=== PATIENT | male | born 1960 | race Caucasian/White ===

== ENCOUNTER 2019-01-18 02:55 | Observation (INO) | payer BC ==
[~2019-01-18] VITALS: Ht 177.8 cm; Wt 130.6 kg
[~2019-01-18 02:55] MED LIST: ASPIRIN CHEW81 MG PO; CO Q10200 MG PO; DILAUDID4 MG PO; DOXYCYCLINE HY100 MG PO; FENOFIBRATE160 MG PO; HYDROCHLOROTH12.5 MG PO; HYDROCODON-ACE1 EAC9 PO; HYDROXYCHLOROQ200 MG PO; LASIX40 MG PO; LOPRESSOR25 MG PO; LORCET 10-6501 EACH PO; MELATONIN 3 MG1 EACH PO; METHOCARBAMOL750 MG PO; METOPROLOL SUCC25 MG PO; NEURONTIN300 MG PO; PEPCID20 MG PO; PLAVIX75 MG PO; PRAVASTATIN SOD10 MG; PRINIVIL10 MG PO; VITAMIN D32000 UNIT PO; ZOCOR40 MG PO
[2019-01-18] MEDS ORDERED: NITROGLYCERIN 2% OINT 1 GM PKT TOP ONE (03:00)
[2019-01-18 03:34] LABS: BASOPHILS # (AUTO) 0.1 (0.0-0.1); BASOPHILS % 0.4 % (0.0-1.0); EOSINOPHILS # (AUTO) 0.5 (0.0-0.4); EOSINOPHILS % 3.9 % (0.0-6.0); HEMATOCRIT 46.4 % (38.2-49.6); HEMOGLOBIN 15.8 g/dL (14.0-18.0); LYMPHOCYTES % 24.1 % (18.0-39.1); MEAN CORPUSCULAR HGB CONC 34.1 g/dL (31-35); MEAN CORPUSCULAR VOLUME 93.9 fL (81-99); MONOCYTES # (AUTO) 1.4 (0.2-0.8); MONOCYTES % 11.6 % (4.4-11.3); NEUTROPHILS # (AUTO) 7.4 (2.1-6.9); NEUTROPHILS % 59.6 % (38.7-80.0); PLATELET COUNT 265 x10e3/uL (140-360); RED BLOOD COUNT 4.94 x10e6/uL (4.3-5.7); RED CELL DISTRIBUTION WIDTH 12.5 % (11.7-14.4)
[2019-01-18 03:37] LABS: INR 0.9; PROTHROMBIN TIME 12.6 seconds (11.9-14.5)
[2019-01-18 03:38] LABS: PARTIAL THROMBOPLASTIN TIME 29.6 seconds (23.8-35.5)
[2019-01-18] MEDS ORDERED: ASPIRIN 81 MG CHEW TAB ONE (03:40)
[2019-01-18] MEDS ORDERED: ASPIRIN 81 MG CHEW TAB PO ONE (03:45)
[2019-01-18 03:46] LABS: ALANINE AMINOTRANSFERASE 17 IU/L (0-55); ALBUMIN 3.6 g/dL (3.5-5.0); ALBUMIN/GLOBULIN RATIO 1.1 (0.8-2.0); ALKALINE PHOSPHATASE 58 IU/L (40-150); ANION GAP 12.9 mmol/L (8-16); BLOOD UREA NITROGEN 16 mg/dL (7-26); BUN/CREATININE RATIO 13 (6-25); CALCIUM 9.5 mg/dL (8.4-10.2); CARBON DIOXIDE 27 mmol/L (22-29); CHLORIDE 104 mmol/L (98-107); CREATININE, SERUM 1.19 mg/dL (0.72-1.25); EST GLOMERULAR FILTRATION RATE > 60 ML/MIN (60-); GLUCOSE 99 mg/dL (74-118); POTASSIUM 3.9 mmol/L (3.5-5.1); SODIUM 140 mmol/L (136-145)
--- NOTE | 2019-01-18 04:02 | Diagnostic Imaging Report ---
EXAMINATION: CHEST SINGLE (PORTABLE) INDICATION: ^CHEST PAIN ^[id number] ^0325 ^Y COMPARISON: None available FINDINGS: AP view TUBES and LINES: None. LUNGS: Limited by body habitus. Lungs are well inflated. Mild central vascular congestion. No focal consolidation. PLEURA: No pleural effusion or pneumothorax. HEART AND MEDIASTINUM: The cardiomediastinal silhouette is mildly prominent. BONES AND SOFT TISSUES: No acute osseous lesion. Soft tissues are unremarkable. UPPER ABDOMEN: No free air under the diaphragm. IMPRESSION: Mildly prominent cardiac silhouette with mild central vascular congestion. No focal consolidation. Signed by: Dr. Maldonado Bravo MD on 01/18/2019 3:59 AM
[2019-01-18] MEDS ORDERED: IOPAMIDOL 370 MG/ML 200 ML INFUS..BTL INJ ONE (04:07)
[2019-01-18] MEDS ORDERED: SODIUM CHLORIDE 0.9% 50ML 50 ML ONE (04:07)
[2019-01-18 04:31] LABS: CREATINE KINASE MB 2.9 ng/mL (0-5.0)
--- NOTE | 2019-01-18 05:14 | Diagnostic Imaging Report ---
EXAM: CT Chest WITH contrast (PE Protocol) INDICATION: ^PE PROTOCOL ^[id number] ^0410 ^Y COMPARISON: Chest CT dated 06/29/2015 TECHNIQUE: Chest was scanned utilizing a multidetector helical scanner from the lung apex through the level of the diaphragm after administration of IV contrast. Thin section reconstructions were obtained with special concentration on the pulmonary arteries. Coronal and sagittal reformations were obtained. Dose modulation, iterative reconstruction, and/or weight based adjustment of the mA/kV was utilized to reduce the radiation dose to as low as reasonably achievable. Pulmonary embolism protocol was performed. IV CONTRAST: 100 mL of Isovue-370 COMPLICATIONS: None RADIATION DOSE: Total DLP: 669.93 mGy*cm Estimated effective dose: (DLP x 0.014 x size factor) mSv CTDIvol has been reviewed. It is below the limits set by the Radiation Protocol Committee (RPC). FINDINGS: LINES/ TUBES: None. LUNGS AND AIRWAYS: No filling defect is identified within the pulmonary arteries to the segmental level. The lungs are unremarkable. Stable anterior right upper lobe 7 mm nodule since 2014, likely benign. Airways are normal. PLEURA: The pleural spaces are clear. HEART AND MEDIASTINUM: The thyroid gland is normal. No mediastinal, hilar or axillary lymphadenopathy. The heart is normal in size.. There is no pericardial effusion. . Main pulmonary artery measures 3 cm in diameter and the ascending aorta measures 3.6 cm. Coronary stents. UPPER ABDOMEN: Cholecystectomy. Colonic diverticuli visualized. BONES: The visualized bony thorax is within normal limits. SOFT TISSUES: Unremarkable. IMPRESSION: No pulmonary emboli. Signed by: Dr. Maldonado Bravo MD on 01/18/2019 5:10 AM
[2019-01-18] MEDS ORDERED: CYMBALTA30 MG PO (05:19)
[2019-01-18] MEDS ORDERED: LASIX40 MG PO (05:19)
[2019-01-18] MEDS ORDERED: K DUR10 MEQ PO (05:20)
[2019-01-18] MEDS ORDERED: CLOPIDOGREL BISULFATE 75 MG TAB PO ONE (05:30)
[2019-01-18] MEDS ORDERED: ONDANSETRON HCL INJ 2MG/ML 2ML 2 MG/ML VIAL IV PRN (05:45)
--- NOTE | 2019-01-18 05:51 | NUR ---
PT PLACED ON TELE BOX 22
--- OUTSIDE RECORDS SUMMARY | 2019-01-18 06:02 | XMS REPORT ---
Author Author [facility] Address Unknown Phone Unavailable Care Team Providers Care Java J2E[employer] Application Developer Name Role Phone Luciano ENGLISH Unavailable Unavailable Problems This patient has no known problems. Allergies, Adverse Reactions, Alerts This patient has no known allergies or adverse reactions. Medications This patient has no known medications. Results Test Description Test Time Test Comments Text Results Atomic Results Result Comments CT CHEST W 2019-01-18 05:04:00 [place] [address] Patient Name: CIERRA WYATT MR #: [id number] : 1960 Age/Sex: 58/M Req #: [id number] Adm Physician: Ordered by: GABI ENGLISH MD Report #: [id number] Location: ER Room/Bed: Procedure: [id number] CT/CT CHEST W Exam Date: 01/18/19 Exam Time: 409 REPORT STATUS: Signed EXAM: CT Chest WITH contrast (PE Protocol) INDICATION: PE PROTOCOL [id number] 0410 Y COMPARISON: Chest CT dated 06/29/2015 TECHNIQUE: Chest was scanned utilizing a multidetector helical scanner from the lung apex through the level of the diaphragm after administration of IV contrast. Thin section reconstructions were obtained with special concentration on the pulmonary arteries. Coronal and sagittal reformations were obtained. Dose modulation, iterative reconstruction, and/or weight based adjustment of the mA/kV was utilized to reduce the radiation dose to as low as reasonably achievable. Pulmonary embolism protocol was performed. IV CONTRAST: 100 mL of Isovue-370 COMPLICATIONS: None RADIATION DOSE: Total DLP: 669.93 mGy*cm Estimated effective dose: (DLP x 0.014 x size factor) mSv CTDIvol has been reviewed. It is below the limits set by the Radiation Protocol Committee (RPC). FINDINGS: LINES/ TUBES: None. LUNGS AND AIRWAYS: No filling defect is identified within the pulmonary arteries to the segmental level. The lungs are unremarkable. Stable anterior right upper lobe 7 mm nodule since 2015, likely benign. Airways are normal. PLEURA: The pleural spaces are clear. HEART AND MEDIASTINUM: The thyroid gland is normal. No mediastinal, hilar or axillary lymphadenopathy. The heart is normal in size.. There is no pericardial effusion. . Main pulmonary artery measures 3 cm in diameter and the ascending aorta measures 3.6 cm. Coronary stents. UPPER ABDOMEN: Cholecystectomy. Colonic diverticuli visualized. BONES: The visualized bony thorax is within normal limits. SOFT TISSUES: Unremarkable. IMPRESSION: No pulmonary emboli. Signed by: Dr. Maldonado Magdaleno MD on 01/18/2019 5:10 AM Dictated By: MALDONADO MAGDALENO MD 9 Transcribed By: TIFFANY on 01/18/19509 COPY TO: GABI ENGLISH MD CHEST SINGLE (PORTABLE) 2019-01-18 03:57:00 [place] [address] Patient Name: CIERRA WYATT MR #: [id number] : 1960 Age/Sex: 58/M Req #: [id number] Adm Physician: Ordered by: GABI ENGLISH MD Report #: [id number] Location: ER Room/Bed: Procedure: [id number] DX/CHEST SINGLE (PORTABLE) Exam Date: 01/18/19 Exam Time: 324 REPORT STATUS: Signed EXAMINATION: CHEST SINGLE (PORTABLE) INDICATION: CHEST PAIN [id number] Y COMPARISON: None available FINDINGS: AP view TUBES and LINES: None. LUNGS: Limited by body habitus. Lungs are well inflated. Mild central vascular congestion. No focal consolidation. PLEURA: No pleural effusion or pneumothorax. HEART AND MEDIASTINUM: The cardiomediastinal silhouette is mildly prominent. BONES AND SOFT TISSUES: No acute osseous lesion. Soft tissues are unremarkable. UPPER ABDOMEN: No free air under the diaphragm. IMPRESSION: Mildly prominent cardiac silhouette with mild central vascular congestion. No focal consolidation. Signed by: Dr. Maldonado Magdaleno MD on 01/18/2019 3:59 AM Dictated By: MALDONADO MAGDALENO MD 8 Transcribed By: TIFFANY on 01/18/19358 COPY TO: GABI ENGLISH MD
[2019-01-18] MEDS: FAMOTIDINE 20 MG/2 ML VIAL IV SCH ×2 (06:15→17:40)
--- NOTE | 2019-01-18 06:21 | NUR ---
Pt received from ER. Pt A&O and in no apparent distress. Pt at bedside. Pt on room air and tele. Pt has no current complaints of pain. All safety measures ensured. Pt encouraged to use call hickey for assistance.
[2019-01-18 06:33] VITALS: BP 127/75
--- NOTE | 2019-01-18 06:50 | NUR ---
rounded with superintendent house nurse, patient aware of change and in no distress. call hickey within reach and bed in lowest position.
--- NOTE | 2019-01-18 07:01 | NUR ---
Bedside report and walking rounds complete with day shift RN.
[2019-01-18 07:42] VITALS: BP 135/65
[2019-01-18 08:14] VITALS: BP 135/65
--- NOTE | 2019-01-18 08:50 | NUR ---
patient leaving unit to nuclear medicine for stress test at this time, alert and oriented and in no distress.
[2019-01-18] MEDS ORDERED: REGADENOSON 0.4 MG/5 ML SYR IV ONE (08:54)
[2019-01-18] MEDS ORDERED: ASPIRIN 81 MG ENTERIC COATED PO SCH (09:00)
[2019-01-18] MEDS ORDERED: CLOPIDOGREL BISULFATE 75 MG TAB PO SCH (09:00)
--- NOTE | 2019-01-18 11:51 | NUR ---
patient arrived on unit via wheelchair, alert and oriented. Call hickey within reach, bed in lowest position and at bedside.
[2019-01-18 12:15] VITALS: BP 137/71
[2019-01-18 12:41] LABS: CREATINE KINASE MB 3.3 ng/mL (0-5.0)
[2019-01-18] MEDS ORDERED: POLYETHYLENE GLYCOL 3350 17 GM PACK PO PRN (12:45)
[2019-01-18] MEDS ORDERED: HYDRALAZINE HCL 20 MG/ML VIAL IV PRN (12:45)
--- NOTE | 2019-01-18 15:58 | Consultation ---
DATE OF CONSULTATION: Cardiology Consultation CHIEF COMPLAINT: The patient is admitted with left arm numbness and left neck pain. HISTORY OF PRESENT ILLNESS: The patient is a 58-year-old with multiple prior stents, who came to the emergency room with left arm tingling and numbness associated with left neck discomfort and jaw discomfort. According to the patient, the sensation was distinctly different from his prior anginal episodes. The patient has had multiple stents in the past. The patient had no shortness of breath. No syncope. No dizziness. No fevers. No nausea. No vomiting. PAST MEDICAL HISTORY: Significant for, 1. Coronary artery disease. 2. Intracoronary stent placement several times. MEDICATIONS AT HOME: Include aspirin, clopidogrel, furosemide, metoprolol, and Zocor. SOCIAL HISTORY: The patient does not drink, does not smoke. FAMILY HISTORY: There is a known family history of coronary artery disease. PHYSICAL EXAMINATION: GENERAL: The patient is a well-developed, well-nourished male, in no distress. VITAL SIGNS: Included a temperature of 96.7, pulse is 66, blood pressure of 128/76. HEAD, EARS, EYES, NOSE, AND THROAT: The patient's cranium was normocephalic and atraumatic. Extraocular muscles were intact. Sclera was anicteric. Pupils were equal, round, reactive to light. There is no pallor, cyanosis of the oral mucosa. There is no erythema or edema of the throat. NECK: Supple. No jugular venous distention. No carotid bruits. CHEST: Clear to auscultation and percussion. CARDIAC: Demonstrated a normal S1 and S2 with a short 2/6 systolic murmur. ABDOMEN: Demonstrated good bowel sounds. No tenderness and no masses. EXTREMITIES: No clubbing, no cyanosis, and no edema. NEUROLOGIC: The patient was alert and oriented x3. Cranial nerves II through XII are intact. Motor strength was +5/+5 in all limbs. The patient's EKG demonstrated normal sinus rhythm with a normal record. IMPRESSION: The patient is a 58-year-old with previous coronary stents, admitted with atypical chest pain. So far, the patient's cardiac enzymes have been negative. RECOMMENDATIONS: 1. Echocardiogram has been ordered. 2. A Lexiscan nuclear stress test has been ordered. 3. The patient will be monitored on telemetry. MD MADELINE Ritchie/RICARDO /[id number]
--- NOTE | 2019-01-18 16:43 | Myoview Stress Test ---
DATE OF STUDY: 01/18/2019 07:17:00 Stress Test - Treadmill ONLY PROCEDURE: Lexiscan Myoview stress test. INDICATION: Chest pain. TECHNIQUE: The patient was given 10 mCi of Myoview. Resting images were obtained in the horizontal long axis, vertical long axis, and short axis. The patient was then hooked up to the EKG machine. Lexiscan was infused over 15 seconds. Immediately after completion of the Lexiscan infusion, the patient was given 30 mCi of Myoview. Stress images were obtained 30 minutes after completion of Myoview infusion. Stress images were obtained in the horizontal long axis, vertical long axis, and short axis. RESULTS: 1. The resting EKG demonstrated normal sinus rhythm with some nonspecific ST and T-wave changes. 2. There were no EKG changes and no symptoms during Lexiscan infusion. 3. The patient had normal perfusion to all segments of the myocardium in both stress and rest. 4. The patient did have left ventricular enlargement with moderate global left ventricular dysfunction and ejection fraction of 38%. CONCLUSIONS: There is normal perfusion to all segments of the myocardium with no evidence of ischemia. There is moderate left ventricular dysfunction with an ejection fraction of 38%. MD MADELINE Ritchie/MODL /[id number]
[2019-01-18 16:52] VITALS: BP 136/67
[2019-01-18] MEDS: DOCUSATE SODIUM 100 MG CAP PO SCH (17:40)
--- NOTE | 2019-01-18 19:04 | NUR ---
rounded with security shift manager nurse, patient aware of change and in no distress with at bedside. call hickey within reach and bed in lowest position.
--- NOTE | 2019-01-18 19:12 | NUR ---
Bedside report and walking rounds complete. Pt resting in bed and in no apparent distress. All safety measures ensured.
[2019-01-18 20:00] VITALS: BP 118/68
[2019-01-18 20:29] LABS: CREATINE KINASE MB 3.6 ng/mL (0-5.0)
[2019-01-19] VITALS: BP 130/71
[2019-01-19 04:00] VITALS: BP 123/61
[2019-01-19 04:54] LABS: BASOPHILS # (AUTO) 0.1 (0.0-0.1); BASOPHILS % 0.6 % (0.0-1.0); EOSINOPHILS # (AUTO) 0.5 (0.0-0.4); EOSINOPHILS % 6.1 % (0.0-6.0); HEMATOCRIT 47.4 % (38.2-49.6); HEMOGLOBIN 15.8 g/dL (14.0-18.0); LYMPHOCYTES # (AUTO) 2.6 (1.0-3.2); LYMPHOCYTES % 29.3 % (18.0-39.1); MEAN CORPUSCULAR HEMOGLOBIN 31.4 pg (28-32); MEAN CORPUSCULAR HGB CONC 33.3 g/dL (31-35); MEAN CORPUSCULAR VOLUME 94.2 fL (81-99); MONOCYTES # (AUTO) 0.8 (0.2-0.8); MONOCYTES % 9.2 % (4.4-11.3); NEUTROPHILS # (AUTO) 4.8 (2.1-6.9); NEUTROPHILS % 53.9 % (38.7-80.0); PLATELET COUNT 242 x10e3/uL (140-360); RED BLOOD COUNT 5.03 x10e6/uL (4.3-5.7); RED CELL DISTRIBUTION WIDTH 12.6 % (11.7-14.4)
[2019-01-19 05:19] LABS: ALANINE AMINOTRANSFERASE 16 IU/L (0-55); ALBUMIN 3.4 g/dL (3.5-5.0); ALBUMIN/GLOBULIN RATIO 1.1 (0.8-2.0); ALKALINE PHOSPHATASE 56 IU/L (40-150); ANION GAP 11.6 mmol/L (8-16); BLOOD UREA NITROGEN 16 mg/dL (7-26); BUN/CREATININE RATIO 14 (6-25); CARBON DIOXIDE 28 mmol/L (22-29); CHLORIDE 105 mmol/L (98-107); CHOL/HDL RATIO 4.4 (3.9-4.7); CHOLESTEROL 194 MD/DL (0-199); CREATININE, SERUM 1.11 mg/dL (0.72-1.25); EST GLOMERULAR FILTRATION RATE > 60 ML/MIN (60-); GLUCOSE 109 mg/dL (74-118); HDL CHOLESTEROL 44 MG/DL (40-60); LDL CHOLESTEROL 126 MG/DL (60-130); POTASSIUM 4.6 mmol/L (3.5-5.1); SODIUM 140 mmol/L (136-145); TRIGLYCERIDES 119 MG/DL (0-149)
[2019-01-19] MEDS: FAMOTIDINE 20 MG/2 ML VIAL IV SCH (05:19)
[2019-01-19 05:37] LABS: MAGNESIUM 2.3 MG/DL (1.3-2.1); PHOSPHORUS 4.4 MG/DL (2.3-4.7)
[2019-01-19 05:58] LABS: THYROID STIMULATING HORMONE 0.855 uIU/mL (0.350-4.940)
[2019-01-19] MEDS: DOCUSATE SODIUM 100 MG CAP PO SCH (08:50)
[2019-01-19] MEDS ORDERED: ASPIRIN 81 MG ENTERIC COATED PO SCH (09:00)
[2019-01-19] MEDS ORDERED: CLOPIDOGREL BISULFATE 75 MG TAB PO SCH (09:00)
--- NOTE | 2019-01-19 09:46 | NUR ---
Pt is in bed resting. No c/o chest pain at this time. IV to L AC, patent no swelling or redness to insertion site. Pt is able to ambulate by self. Tolerated breakfast well. A&O x3. Resp WNL. Call light within reach, bed at lowest position.
[2019-01-19 10:02] VITALS: BP 132/70
[2019-01-19] MEDS ORDERED: ONDANSETRON HCL 4 MG ORAL DISINTEGRATING TAB PO PRN (10:15)
[2019-01-19] MEDS ORDERED: FAMOTIDINE 20 MG TAB PO SCH (21:00)
--- NOTE | 2019-01-20 05:35 | Discharge Summary ---
HISTORY OF PRESENT ILLNESS: Mr. Isabel is a 58-year-old man, who began having left arm pain, which radiated to the chest, then to the left neck and the jaw. He took his baby aspirin, Plavix, metoprolol, and pravastatin at that time without any relief. He then tried sitting in his chair to relax and watch TV, but his left arm continued to feel heavy and droopy, so his took him to the hospital. PAST MEDICAL HISTORY: Significant for coronary artery disease, asthma, hard of hearing, Meniere disease with associated tinnitus, and umbilical hernia. PAST SURGICAL HISTORY: Includes PCI with coronary stent total of four stents, right rotator cuff repair, cholecystectomy, tonsillectomy, bilateral hip hemiarthrosis, bilateral knee replacements, bilateral ganglion cyst on the wrist, frontal sinus obliteration with deviated septum repair, and umbilical hernia repair. FAMILY HISTORY: Noncontributory. SOCIAL HISTORY: Denies ever using tobacco, alcohol, or illicit drugs. He lives with his , daughter, and grandchildren. 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 ALLERGIES: HE IS ALLERGIC TO IBUPROFEN. ADMITTING DIAGNOSES: Include: 1. Atypical chest pain, coronary artery disease with history of PCI with stent x4 coronary vessels. 2. Elevated creatine kinase. 3. Positive D-dimer. 4. Elevated B-type natriuretic peptide. 5. Hyperlipidemia. 6. Dyspnea on exertion. 7. Asthma. 8. Acute leukocytosis. 9. Umbilical hernia. 10. Morbid obesity with BMI 41.6. 11. Meniere disease. DISCHARGE DIAGNOSES: 1. Atypical chest pain. 2. Hyperlipidemia. 3. Dyspnea on exertion. 4. Asthma. 5. Umbilical hernia. 6. Morbid obesity with BMI 41.6. 7. Meniere disease. LABORATORY DATA: On admission; sodium 140, potassium 3.9, chloride 104, CO2 of 27, BUN 16, creatinine 1.19, GFR greater than 60, and glucose 99. WBC is 12.3, hemoglobin 15.8, hematocrit 46.4, and platelets 265. PT 12.6, PTT 29.6, INR 0.90, total bilirubin 0.4, AST 20, ALT 17, alkaline phosphatase 58, total protein 7, albumin 3.6, B-type nitrate peptide 107.3, creatine kinase 432, CK-MB 2.9, troponin I 0.004. D-dimer 0.52. His ECG showed normal sinus rhythm with a heart rate of 79. His echocardiogram done on January 18, showed estimated ejection fraction of 55% to 60% on preliminary report. CT of the chest was negative for PE. Chest x-ray showed mild central vascular congestion with no focal consolidation. Stress test was completed on January 18, according to Dr. Jacek Nguyễn, the talkback host's note. The Lexiscan nuclear stress test was negative for ischemia and okay to discharge the patient home. No chest pain today. Labs on the day of discharge were generally within normal limits. The patient should continue cardiac diet. Activity level as tolerated. Follow up with PCP in 1 to 2 weeks. Dictated by Brian Celestin NP Manohar Garcias MD HWP/MODL /[id number]
== END 2019-01-19 12:00 | disposition home or self-care (01) ==
LOC: ER 02:55 → ERHOLD 05:57 → IMCU 06:19
PROVIDERS: ADMIT Internal Medicine; ATTEND Internal Medicine
DX: R07.89 Other chest pain (principal); I25.10 Atherosclerotic heart disease of native coronary artery without angina pectoris; Z95.5 Presence of coronary angioplasty implant and graft; J45.909 Unspecified asthma, uncomplicated; Z82.49 Family history of ischemic heart disease and other diseases of the circulatory system; Z88.8 Allergy status to other drugs, medicaments and biological substances; E78.5 Hyperlipidemia, unspecified; D72.829 Elevated white blood cell count, unspecified; K42.9 Umbilical hernia without obstruction or gangrene; E66.01 Morbid (severe) obesity due to excess calories; Z68.41 Body mass index [BMI] 40.0-44.9, adult; H81.09 Meniere's disease, unspecified ear; Z91.81 History of falling; Z96.653 Presence of artificial knee joint, bilateral; Z79.82 Long term (current) use of aspirin
CPT/HCPCS: 36415 ×2; 71045; 71260; 78452; 80053 ×2; 80061; 82550; 82553; 83036; 83735; 83880; 84100; 84443; 84484; 85025 ×2; 85379; 85610; 85730; 93005; 93017; 93306; 96374; 97161; 99284; A9502; G0378 ×2; J2785; Q9967

== ENCOUNTER → 2019-03-29 | Outpatient (CLI) | payer BC ==
[~2019-03-29] MED LIST changes: +CYMBALTA30 MG PO; +K DUR10 MEQ PO
== END ==
LOC: SLEEP 03-21 20:13
PROVIDERS: ATTEND Internal Medicine Critical Care Medicine
DX: G47.33 Obstructive sleep apnea (adult) (pediatric) (principal)
CPT/HCPCS: 95810

== ENCOUNTER → 2019-04-13 | Outpatient (CLI) | payer BC ==
--- NOTE | 2019-05-14 17:39 | Polysomnography ---
DATE OF STUDY: REFERRING PHYSICIAN: STUDY: Polysomnography report. HISTORY OF PRESENT ILLNESS: The patient reports excessive daytime fatigue and somnolence. The patient has difficulty initiating sleep and maintaining sleep. INTERPRETATION: The patient came to the laboratory for a diagnostic study. The patient slept for 362 minutes out of 410 minutes. The sleep efficiency was 90.8%. The sleep onset latency was 22 minutes and 8 seconds. The patient spent 362 minutes in total time in REM sleep was 29 minutes, which was 7.1% of the night. The patient had 20 apneic events and 94 hypophonic events. The apnea-hypopnea index was 16.7 events per hour. The minimal saturation was 70%. The minimal heart rate was 53 beats per minute. There were no arrhythmias. The patient spent 4.3% of the night in the supine position and the remainder of the night in the non-supine position. There were some increased limb movements with a limb movement index of . The Ansley sleep score was 15. IMPRESSION: 1. Moderate obstructive sleep apnea. 2. Increased daytime somnolence as indicated by an elevated . 3. Periodic limb movements during sleep. RECOMMENDATIONS: 1. Second night sleep study with CPAP titration. 2. Avoid alcohol or sedatives prior to retiring at night. 3. Achieve and maintain an ideal body weight. 4. Avoid alcohol or sedatives prior to retiring at night. MD LEONARDO Medina/RICARDO /[id number]
== END ==
LOC: SLEEP 19:00
PROVIDERS: ATTEND Internal Medicine Critical Care Medicine
DX: G47.33 Obstructive sleep apnea (adult) (pediatric) (principal)

== ENCOUNTER → 2020-07-24 | Outpatient (CLI) | payer BC | LOC: RAD 14:38 | PROVIDERS: ATTEND Internal Medicine Pulmonary Disease | DX: R06.02 Shortness of breath (principal) | CPT/HCPCS: 71046 ==

== ENCOUNTER 2020-10-14 14:25 | Inpatient (IN) | payer BC ==
[~2020-10-14] VITALS: Ht 177.8 cm; Wt 83.9 kg
[2020-10-14 15:02] LABS: BASOPHILS # (AUTO) 0.1 (0.0-0.1); BASOPHILS % 0.6 % (0.0-1.0); EOSINOPHILS # (AUTO) 0.5 (0.0-0.4); EOSINOPHILS % 4.9 % (0.0-6.0); HEMATOCRIT 47.1 % (38.2-49.6); HEMOGLOBIN 15.4 g/dL (14.0-18.0); LYMPHOCYTES # (AUTO) 3.3 (1.0-3.2); MEAN CORPUSCULAR HEMOGLOBIN 30.9 pg (28-32); MEAN CORPUSCULAR HGB CONC 32.7 g/dL (31-35); MEAN CORPUSCULAR VOLUME 94.4 fL (81-99); MONOCYTES # (AUTO) 1.3 (0.2-0.8); MONOCYTES % 11.5 % (4.4-11.3); NEUTROPHILS # (AUTO) 5.7 (2.1-6.9); NEUTROPHILS % 52.5 % (38.7-80.0); PLATELET COUNT 263 x10e3/uL (140-360); RED BLOOD COUNT 4.99 x10e6/uL (4.3-5.7); RED CELL DISTRIBUTION WIDTH 12.8 % (11.7-14.4)
[2020-10-14 15:24] LABS: ALANINE AMINOTRANSFERASE 28 IU/L (0-55); ALBUMIN 3.8 g/dL (3.5-5.0); ALBUMIN/GLOBULIN RATIO 0.9 (0.8-2.0); ALKALINE PHOSPHATASE 50 IU/L (40-150); ANION GAP 14.8 mmol/L (8-16); BLOOD UREA NITROGEN 23 mg/dL (7-26); BUN/CREATININE RATIO 22 (6-25); CALCIUM 9.1 mg/dL (8.4-10.2); CARBON DIOXIDE 26 mmol/L (22-29); CHLORIDE 104 mmol/L (98-107); CREATININE, SERUM 1.04 mg/dL (0.72-1.25); EST GLOMERULAR FILTRATION RATE > 60 ML/MIN (60-); GLUCOSE 90 mg/dL (74-118); POTASSIUM 3.8 mmol/L (3.5-5.1); SODIUM 141 mmol/L (136-145)
[2020-10-14] MEDS ORDERED: LORAZEPAM INJ 2 MG/ML VIAL ONE (16:51)
[2020-10-14 17:29] VITALS: BP 180/80
[2020-10-14 17:38] VITALS: BP 180/80
[2020-10-14 17:53] VITALS: BP 180/80
[2020-10-14] MEDS ORDERED: HYDRALAZINE HCL 20 MG/ML VIAL IV PRN (19:15)
[2020-10-14] MEDS ORDERED: ACETAMINOPHEN 325 MG TAB PO PRN (19:45)
[2020-10-14] MEDS ORDERED: ONDANSETRON HCL INJ 2MG/ML 2ML 2 MG/ML VIAL IV PRN (19:45)
[2020-10-14] MEDS ORDERED: ACETAMINOPHEN/CODEINE 300MG - 30MG TAB PO PRN (19:45)
[2020-10-14 20:00] VITALS: BP 111/61
[2020-10-14] MEDS: SIMVASTATIN 40 MG TAB PO SCH (20:46)
[2020-10-14] MEDS ORDERED: ZOLPIDEM TARTRATE 10 MG TAB PO PRN (21:00)
[2020-10-15] VITALS (8 sets, daily range): BP systolic 97–124; BP diastolic 34–86
[2020-10-15 05:58] LABS: BASOPHILS # (AUTO) 0.1 (0.0-0.1); BASOPHILS % 0.6 % (0.0-1.0); EOSINOPHILS # (AUTO) 0.5 (0.0-0.4); EOSINOPHILS % 4.8 % (0.0-6.0); HEMATOCRIT 44.7 % (38.2-49.6); HEMOGLOBIN 14.5 g/dL (14.0-18.0); LYMPHOCYTES # (AUTO) 2.9 (1.0-3.2); LYMPHOCYTES % 27.8 % (18.0-39.1); MEAN CORPUSCULAR HGB CONC 32.4 g/dL (31-35); MEAN CORPUSCULAR VOLUME 95.7 fL (81-99); MONOCYTES # (AUTO) 1.3 (0.2-0.8); MONOCYTES % 12.3 % (4.4-11.3); NEUTROPHILS # (AUTO) 5.6 (2.1-6.9); NEUTROPHILS % 53.8 % (38.7-80.0); PLATELET COUNT 247 x10e3/uL (140-360); RED BLOOD COUNT 4.67 x10e6/uL (4.3-5.7); RED CELL DISTRIBUTION WIDTH 12.8 % (11.7-14.4)
[2020-10-15 06:30] LABS: ANION GAP 13.7 mmol/L (8-16); BLOOD UREA NITROGEN 25 mg/dL (7-26); BUN/CREATININE RATIO 22 (6-25); CALCIUM 8.8 mg/dL (8.4-10.2); CARBON DIOXIDE 27 mmol/L (22-29); CHLORIDE 107 mmol/L (98-107); CREATININE, SERUM 1.14 mg/dL (0.72-1.25); EST GLOMERULAR FILTRATION RATE > 60 ML/MIN (60-); GLUCOSE 128 mg/dL (74-118); POTASSIUM 3.7 mmol/L (3.5-5.1); SODIUM 144 mmol/L (136-145)
[2020-10-15 06:52] LABS: CHOL/HDL RATIO 4.9 (3.9-4.7)
[2020-10-15] MEDS ORDERED: METOPROLOL TARTRATE 25 MG TAB PO SCH (09:00)
[2020-10-15] MEDS: POTASSIUM CHLORIDE 10MEQ EA PO SCH (09:37)
[2020-10-15] MEDS: SACUBITRIL/VALSARTAN 1 EACH TABLET PO SCH (09:37)
[2020-10-15] MEDS: DULOXETINE HCL 30 MG DELAYED RELEASE PO SCH (09:37)
[2020-10-15] MEDS: FAMOTIDINE 20 MG TAB PO SCH ×2 (09:37→16:56)
[2020-10-15] MEDS: FUROSEMIDE 40 MG TAB PO SCH (09:38)
[2020-10-15] MEDS: CLOPIDOGREL BISULFATE 75 MG TAB PO SCH (09:38)
[2020-10-15] MEDS ORDERED: ONDANSETRON HCL 4 MG ORAL DISINTEGRATING TAB PO PRN (19:15)
[2020-10-15] MEDS: SIMVASTATIN 40 MG TAB PO SCH (20:31)
[2020-10-15] MEDS ORDERED: LASIX10 MG/ML PO (21:09)
[2020-10-15] MEDS ORDERED: CYMBALTA30 MG PO (21:09)
[2020-10-15] MEDS ORDERED: METHOCARBAMOL750 MG PO (21:09)
[2020-10-15] MEDS ORDERED: ST. JOSEPH ASPI81 M2 PO (21:09)
[2020-10-15] MEDS ORDERED: PRAVACHOL40 MG PO (21:09)
[2020-10-15] MEDS ORDERED: ETODOLAC400 MG PO (21:09)
[2020-10-15] MEDS ORDERED: SPIRONOLACTONE25 MG PO (21:09)
[2020-10-15] MEDS ORDERED: BENICAR20 MG PO (22:12)
[2020-10-16] VITALS (8 sets, daily range): BP systolic 100–136; BP diastolic 47–80
[2020-10-16] MEDS: DULOXETINE HCL 30 MG DELAYED RELEASE PO SCH (10:45)
[2020-10-16] MEDS: FAMOTIDINE 20 MG TAB PO SCH ×2 (10:45→17:37)
[2020-10-16] MEDS: CLOPIDOGREL BISULFATE 75 MG TAB PO SCH (10:46)
[2020-10-16] MEDS: POTASSIUM CHLORIDE 10MEQ EA PO SCH (10:46)
[2020-10-16] MEDS: FUROSEMIDE 40 MG TAB PO SCH (10:46)
[2020-10-16] MEDS: SACUBITRIL/VALSARTAN 1 EACH TABLET PO SCH (10:46)
[2020-10-16] MEDS ORDERED: AMIODARONE HCL 200 MG TAB PO ONE (11:45)
[2020-10-16] MEDS: AMIODARONE HCL 200 MG TAB PO SCH (20:46)
[2020-10-16] MEDS: SIMVASTATIN 40 MG TAB PO SCH (20:46)
[2020-10-17] VITALS (8 sets, daily range): BP systolic 97–120; BP diastolic 56–74
[2020-10-17 06:33] LABS: BASOPHILS # (AUTO) 0.1 (0.0-0.1); BASOPHILS % 0.6 % (0.0-1.0); EOSINOPHILS # (AUTO) 0.5 (0.0-0.4); EOSINOPHILS % 5.4 % (0.0-6.0); HEMATOCRIT 47.5 % (38.2-49.6); HEMOGLOBIN 15.7 g/dL (14.0-18.0); LYMPHOCYTES # (AUTO) 2.6 (1.0-3.2); LYMPHOCYTES % 27.9 % (18.0-39.1); MEAN CORPUSCULAR HEMOGLOBIN 30.9 pg (28-32); MEAN CORPUSCULAR HGB CONC 33.1 g/dL (31-35); MEAN CORPUSCULAR VOLUME 93.5 fL (81-99); MONOCYTES % 10.7 % (4.4-11.3); NEUTROPHILS # (AUTO) 5.1 (2.1-6.9); NEUTROPHILS % 54.8 % (38.7-80.0); PLATELET COUNT 235 x10e3/uL (140-360); RED BLOOD COUNT 5.08 x10e6/uL (4.3-5.7); RED CELL DISTRIBUTION WIDTH 12.9 % (11.7-14.4)
[2020-10-17 06:52] LABS: ANION GAP 15.1 mmol/L (8-16); BLOOD UREA NITROGEN 17 mg/dL (7-26); BUN/CREATININE RATIO 15 (6-25); CALCIUM 8.4 mg/dL (8.4-10.2); CARBON DIOXIDE 23 mmol/L (22-29); CHLORIDE 105 mmol/L (98-107); EST GLOMERULAR FILTRATION RATE > 60 ML/MIN (60-); GLUCOSE 119 mg/dL (74-118); POTASSIUM 4.1 mmol/L (3.5-5.1); SODIUM 139 mmol/L (136-145)
[2020-10-17] MEDS: FUROSEMIDE 40 MG TAB PO SCH (09:05)
[2020-10-17] MEDS: FAMOTIDINE 20 MG TAB PO SCH ×2 (09:05→15:41)
[2020-10-17] MEDS: CLOPIDOGREL BISULFATE 75 MG TAB PO SCH (09:05)
[2020-10-17] MEDS: AMIODARONE HCL 200 MG TAB PO SCH ×2 (09:05→21:05)
[2020-10-17] MEDS: DULOXETINE HCL 30 MG DELAYED RELEASE PO SCH (09:05)
[2020-10-17] MEDS: SACUBITRIL/VALSARTAN 1 EACH TABLET PO SCH (09:05)
[2020-10-17] MEDS: POTASSIUM CHLORIDE 10MEQ EA PO SCH (09:06)
[2020-10-17] MEDS: SIMVASTATIN 40 MG TAB PO SCH (21:00)
[2020-10-18] VITALS: BP 133/57
[2020-10-18 04:00] VITALS: BP 114/71
[2020-10-18 07:01] LABS: ANION GAP 12.9 mmol/L (8-16); BLOOD UREA NITROGEN 17 mg/dL (7-26); BUN/CREATININE RATIO 15 (6-25); CALCIUM 8.6 mg/dL (8.4-10.2); CARBON DIOXIDE 28 mmol/L (22-29); CHLORIDE 104 mmol/L (98-107); CREATININE, SERUM 1.15 mg/dL (0.72-1.25); EST GLOMERULAR FILTRATION RATE > 60 ML/MIN (60-); GLUCOSE 119 mg/dL (74-118); POTASSIUM 4.9 mmol/L (3.5-5.1); SODIUM 140 mmol/L (136-145)
[2020-10-18 08:00] VITALS: BP 116/76
[2020-10-18] MEDS: FAMOTIDINE 20 MG TAB PO SCH (08:08)
[2020-10-18] MEDS: FUROSEMIDE 40 MG TAB PO SCH (08:08)
[2020-10-18] MEDS: AMIODARONE HCL 200 MG TAB PO SCH (08:08)
[2020-10-18] MEDS: DULOXETINE HCL 30 MG DELAYED RELEASE PO SCH (08:08)
[2020-10-18] MEDS: CLOPIDOGREL BISULFATE 75 MG TAB PO SCH (08:08)
[2020-10-18] MEDS: POTASSIUM CHLORIDE 10MEQ EA PO SCH (08:08)
[2020-10-18] MEDS: SACUBITRIL/VALSARTAN 1 EACH TABLET PO SCH (08:08)
[2020-10-18 08:38] VITALS: BP 116/76
[2020-10-18 12:00] VITALS: BP 124/63
[2020-10-18] MEDS ORDERED: AMIODARONE HCL400 MG PO (13:25)
== END 2020-10-18 17:14 | disposition home or self-care (01) | DRG 309 ==
LOC: ER 14:31 → ERHOLD 16:09 → MED/SURG3 18:44 → OBSVTOIN 10-16 16:13
PROVIDERS: ADMIT Internal Medicine; ATTEND Internal Medicine
DX: I47.2 Ventricular tachycardia (principal); I42.0 Dilated cardiomyopathy; I50.22 Chronic systolic (congestive) heart failure; I25.2 Old myocardial infarction; I25.5 Ischemic cardiomyopathy; Z95.5 Presence of coronary angioplasty implant and graft; I11.0 Hypertensive heart disease with heart failure; Z95.810 Presence of automatic (implantable) cardiac defibrillator; Z96.653 Presence of artificial knee joint, bilateral; Z86.16 Personal history of COVID-19; Z20.822 Contact with and (suspected) exposure to COVID-19; E78.5 Hyperlipidemia, unspecified; M81.0 Age-related osteoporosis without current pathological fracture; H91.90 Unspecified hearing loss, unspecified ear; M17.0 Bilateral primary osteoarthritis of knee; M16.0 Bilateral primary osteoarthritis of hip
CPT/HCPCS: 36415; 71045; 80048; 80053; 80061; 83036; 83735; 83880; 84100; 84484; 85025; 93005; 99284; G0378; J2060; U0002

== ENCOUNTER → 2024-07-04 | Emergency (ER) | payer BC, MEDICARE ==
[~2024-07-04] VITALS: Ht 177.8 cm; Wt 131.5 kg
[~2024-07-04] MED LIST changes: +AMIODARONE HCL400 MG PO; +BENICAR20 MG PO; +CEFDINIR300 MG PO; +ETODOLAC400 MG PO; +LASIX10 MG/ML PO; +PRAVACHOL40 MG PO; +SPIRONOLACTONE25 MG PO; +ST. JOSEPH ASPI81 M2 PO
[2024-07-04 09:10] VITALS: TEMP 98.1
[2024-07-04] MEDS: ONDANSETRON HCL INJ 2MG/ML 2ML 2 MG/ML VIAL IV STA (10:21)
[2024-07-04] MEDS: SODIUM CHLORIDE 0.9% 500ML 500 ML IV ONE (10:22)
[2024-07-04] MEDS: Morphine 4mg INJECTION 4 MG/ML INJ IV STA (10:22)
[2024-07-04 10:51] LABS: BASOPHILS % 0.3 % (0.0-1.0); EOSINOPHILS # (AUTO) 0.1 (0.0-0.4); EOSINOPHILS % 0.6 % (0.0-6.0); HEMATOCRIT 51.5 % (38.2-49.6); LYMPHOCYTES % 18.5 % (18.0-39.1); MEAN CORPUSCULAR HEMOGLOBIN 33.2 pg (28-32); MEAN CORPUSCULAR VOLUME 100.6 fL (81-99); MONOCYTES % 9.7 % (4.4-11.3); NEUTROPHILS # (AUTO) 7.3 (2.1-6.9); NEUTROPHILS % 69.5 % (38.7-80.0); PLATELET COUNT 211 x10e3/uL (140-360); RED BLOOD COUNT 5.12 x10e6/uL (4.3-5.7); RED CELL DISTRIBUTION WIDTH 13.8 % (11.7-14.4); WHITE BLOOD COUNT 10.52 x10e3/uL (4.8-10.8)
[2024-07-04 11:05] LABS: INR 0.95; PROTHROMBIN TIME 13.3 seconds (11.9-14.5)
[2024-07-04 11:12] LABS: ALBUMIN 3.5 g/dL (3.5-5.0); ALBUMIN/GLOBULIN RATIO 1.3 (0.8-2.0); ANION GAP 13.6 mmol/L (8-16); BILIRUBIN,TOTAL 0.8 mg/dL (0.2-1.2); CALCIUM 8.6 mg/dL (8.4-10.2); CREATININE, SERUM 1.35 mg/dL (0.72-1.25); POTASSIUM 4.6 mmol/L (3.5-5.1); TOTAL PROTEIN 6.3 g/dL (6.5-8.1)
[2024-07-04 11:21] LABS: TROPONIN I 0.007 ng/mL (0-0.300)
[2024-07-04 11:33] LABS: BILIRUBIN,URINE NEGATIVE (NEGATIVE); CLARITY,URINE CLEAR (CLEAR); COLOR,URINE YELLOW (YELLOW); GLUCOSE, URINE NEGATIVE (NEGATIVE); KETONES,URINE NEGATIVE (NEGATIVE); LEUKOCYTE ESTERASE ,URINE NEGATIVE (NEGATIVE); NITRITE,URINE NEGATIVE (NEGATIVE); PH,URINE 6 (5 - 7); PROTEIN,URINE DIPSTICK NEGATIVE (NEGATIVE); URINE UROBILINOGEN 1 mg/dL (0.2 - 1)
[2024-07-04 11:48] LABS: BACTERIA,URINE FEW /HPF; EPITHELIAL CELLS,URINE RARE /LPF; RBC,URINE 21-50 /HPF (0-5)
[2024-07-04 12:20] VITALS: PULSE 70; RESP 18; O2SAT 96
== END | disposition home or self-care (01) ==
LOC: ER 09:15
DX: M54.50 Low back pain, unspecified (principal); N20.0 Calculus of kidney; N39.0 Urinary tract infection, site not specified; K57.30 Diverticulosis of large intestine without perforation or abscess without bleeding; R10.32 Left lower quadrant pain
CPT/HCPCS: 36415; 74176; 80053; 81001; 83880; 84484; 85025; 85610; 85730; 87086; 99284; J2270; J2405; J7040